=== PATIENT | female | born 1990 | race Caucasian/White ===

== ENCOUNTER 2020-03-25 21:23 | Outpatient (CLI) | payer OTHER, SELFPAY ==
[2019-08-16 10:47] VITALS: BMI 28.7
[2020-03-25 22:33] VITALS: BMI 35.6
[2020-03-26 00:34] LABS: Color, Urine Yellow (Yellow); Glucose, Dipstick Normal (Normal); Ketone-Dipstick Negative (Negative); Leukocyte Esterase-Dipstick Negative /ul (Negative); Nitrite-Dipstick Negative (Negative); Occult Blood-Urine Negative /ul (Negative); Protein-Dipstick Negative (Negative); Specific Gravity, Urine 1.015 (1.002-1.030); Urine Bilirubin Dipstick Negative (Negative); Urine Clarity Clear (Clear); Urine Urobilinogen Normal (Normal)
--- NOTE | 2020-03-26 09:42 | OB.TRI.HP_ITS ---
- Problem List (1) 35 weeks gestation of Status: Acute (2) History of delivery Status: Acute (3) Pelvic pressure in , antepartum Status: Acute History of Present Illness Date of Service: 03/25/20 Reason For Visit: R/O Date of Service: 03/25/20 Final ANNABELLA: 04/29/20 Gestational age: 35 Weeks and 1 Days History of Present Illness: at 35.0 weeks gestation that presents to triage for increasing pelvic pressure and contractions. Denies loss of fluid or vaginal bleeding. Positive movement. No dysuria, urgency or hematuria. Allergies No Known Allergies Allergy (Verified 03/25/20 23:11) Laboratory Studies: Laboratory Tests 03/25/20 Range/Units 23:25 Urine Color Yellow (Yellow) Urine Clarity Clear (Clear) Urine pH 7.0 (5.0 - 8.0) Ur Specific [place] 1.015 (1.002-1.030) Urine Protein Negative (Negative) mg/dl Urine Glucose (UA) Normal (Normal) mg/dl Urine Ketones Negative (Negative) mg/dl Urine Occult Blood Negative (Negative) /ul Urine Nitrite Negative (Negative) Urine Bilirubin Negative (Negative) mg/dL Urine Urobilinogen Normal (Normal) mg/dl Ur Leukocyte Esterase Negative (Negative) /ul Review of Systems Constitutional: Denies: Fever, Weakness Eyes: Denies: Blurred vision Cardiovascular: Denies: Chest Pain, Palpitations Respiratory: Denies: Cough, Shortness of Breath Genitourinary: Reports: Frequency. Denies: Dysuria, Hematuria, Retention, Urgency Physical Exam General: Alert Cardiovascular: Regular rate Lungs: Normal air movement Abdomen: Soft, Non Tender, Gravid Neurological: Cranial nerves II-XII grossly intact Cervix Dilation (cm): 1 Station: -2 Effacement (%): 70 NST - FHR Rate Baby A Baseline: 140 Variability:: Moderate Accelerations:: 15 x 15 Decelerations:: None NST Reactive:: Yes FHR Category:: Category I Uterine Activity:: TOCO reading 1-4 minutes, palpate mild and relaxed in between Impression/Plan 29 year old at 35.0 weeks gestation here for pelvic pressure, contractions Hx of delivery at 36 weeks gestation UA normal Category 1 tracing- Patient monitored for extended time (4 hours). CE x3 and remained unchanged at /-2 Discharge home and follow up in office this week. Dr. Smith present and agrees with plan of care
== END 2020-03-26 01:35 | disposition home health service (06) ==
LOC: WPOUT 21:45 → OBT 21:45
PROVIDERS: Visit Provider Advanced Practice Midwife
DX: O62.9 Abnormality of forces of labor, unspecified (principal); Z3A.35 35 weeks gestation of pregnancy
CPT/HCPCS: 59025; 59050; 81002; 99218; G0378

== ENCOUNTER 2020-03-26 20:35 | Outpatient (CLI) | payer OTHER, SELFPAY ==
[2020-03-25 22:33] VITALS: BMI 35.6
[2020-03-26 20:47] VITALS: BP 121/76; PULSE 85; TEMP 36.1; O2SAT 98
[2020-03-26 21:35] VITALS: BMI 35.3
[2020-03-26 22:18] VITALS: BP 122/69; PULSE 77
[2020-03-26] MEDS: Lactated Ringers 1,000 ML 50 ML IV (22:40)
[2020-03-27 01:22] VITALS: BP 106/53; PULSE 68
[2020-03-27 01:23] VITALS: TEMP 36.7
[2020-03-27 01:25] VITALS: PULSE 75; O2SAT 97
[2020-03-27 05:10] VITALS: BP 117/69; PULSE 75; TEMP 37
--- NOTE | 2020-03-30 22:11 | OB.TRI.NOTE ---
- Problem List (1) 35 weeks gestation of Status: Acute (2) History of delivery Status: Acute (3) Pelvic pressure in , antepartum Status: Acute History of Present Illness Date of Service: 03/26/20 Was patient seen by the physician?: No Reason For Visit: RULE OUT LABOR Date of Service: 03/26/20 Gestational age: 35.2 History of Present Illness: Patient is a at 35.2 weeks gestation that presents for pelvic pain and contractions. Patient just discharged from triage yesterday for same complaint. Has history of delivery at 36 weeks gestation. Positive movement. Denies loss of fluid or vaginal bleeding. Allergies No Known Allergies Allergy (Verified 03/26/20 21:36) Review of Systems Constitutional: Denies: Chills, Fever, Weight Change HEENT: Denies: Head Aches, Sinus Congestion, Sinus Drainage Cardiovascular: Denies: Chest Pain, Light Headedness, Palpitations Respiratory: Denies: Shortness of Breath Gastrointestinal: Reports: Abdominal Pain Genitourinary: Denies: Dysuria Gynecological: Denies: Vaginal bleeding Physical Exam Vitals: Vital Signs Temp Pulse BP Pulse Ox 98.6 F 75 117/69 97 03/27/20 05:10 03/27/20 05:10 03/27/20 05:10 03/27/20 01:25 General: Alert Cardiovascular: Regular rate Lungs: Normal air movement Abdomen: Soft, Non Tender, Gravid Neurological: Cranial nerves II-XII grossly intact Estimated gestational size: Appropriate for gestational size Presentation: Cephalic Cervix Dilation (cm): 1 Station: -3 Effacement (%): 70 NST - FHR Rate Baby A Baseline: 140 Variability:: Moderate Accelerations:: 15 x 15 Decelerations:: None NST Reactive:: Yes FHR Category:: Category I Uterine Activity:: TOCO reading 2-5 min Impression/Plan at 35.2 weeks gestation presents for pelvic pressure and contractions. CE - unchanged from 24 hours ago /-3 TOCO reading contractions every 2-6 minutes, palpate mild and relaxed in between Plan: Keep as observation status on unit. Start IV fluids- LR at 50cc/hr Pain medication as indicated Continuous monitoring Recheck cervix in morning- If unchanged discharge home and continue follow up in office this week Dr. Smith agrees with plan of care.
== END 2020-03-27 07:25 | disposition home or self-care (01) ==
LOC: OBT 21:06 → WP 03-27 13:27
PROVIDERS: Referring Provider Advanced Practice Midwife; Visit Provider Advanced Practice Midwife
DX: O26.893 Other specified pregnancy related conditions, third trimester (principal); R10.2 Pelvic and perineal pain; Z3A.35 35 weeks gestation of pregnancy
CPT/HCPCS: 59025; 59050; 99218; J7120; G0378

== ENCOUNTER 2020-04-11 19:36 | Inpatient (IN) | payer OTHER, SELFPAY ==
[2014-10-02 02:56] VITALS: BMI 27.1
[2020-04-11 19:51] VITALS: BP 123/73; PULSE 92; TEMP 36.8; O2SAT 98
[2020-04-11 20:13] VITALS: BMI 36.2
[2020-04-11] MEDS: Lactated Ringers 1,000 ML 200 ML IV (20:21)
[2020-04-11 20:42] VITALS: TEMP 36.8
[2020-04-11 21:04] LABS: Absolute Lymphocyte Count 1.98 X10^3/uL (0.83-4.51); Absolute Neutrophil Count 10.8 X10^3/uL (2.0-7.7); Basophil# 0.03 X10^3/uL; Basophil% 0.2 % (0-1); Eosinophils% 0.7 % (0-5); Hematocrit 37.7 % (37-47); Lymphocyte # 1.98 X10^3/ul (4.0); Lymphocyte % 14.5 % (19-41); Mean Corp Hgb Conc 31.8 g/dL (32-36); Mean Corpuscular Hgb 26.8 pg (27.0-32.0); Mean Corpuscular Volume 84.3 fL (81-99); Monocyte# 0.61 X10^3/uL; Monocyte% 4.5 % (0-10); NRBC Flagged by Analyzer 0 % (0-5); Neutrophil % 79.1 % (47-70); Platelet Count 277 K/mm3 (150-450); RBC Distribution Width CV 14.6 % (11.6-14.6); RBC Distribution Width SD 43.9 fl (35.1-43.9); Red Blood Count 4.47 M/mm3 (4.2-5.4); White Blood Count 13.7 K/mm3 (4.4-11.0)
--- NOTE | 2020-04-11 21:14 | HP.PCM_ITS ---
History Date of Admission: 04/11/20 Final ANNABELLA: 04/29/20 Gestational age: 37 Weeks and 3 Days History of this : This is a 29 year-old, @ 37.3 weeks, c/o contractions- VE: 5/60/-3 with contractions every 2-4 min. Denies VB or LOF. Allergies No Known Allergies Allergy (Verified 04/11/20 19:56) Home Medications: Home Medications fluoxetine 10 mg capsule 20 mg PO DAILY 08/16/19 lactobacillus combination no.8 3 billion cell capsule 3,000 mmu cells PO DAILY 08/16/19 prenat.vits,marti,hlc-qbxr-lhwor 1 tab PO DAILY 08/16/19 Acyclovir 400 mg PO TID 04/11/20 Smoking Status: Never smoker Alcohol: None Number of Fetus(es): 1 NST - FHR Rate Baby A Baseline: 140 Variability:: Moderate Accelerations:: 15 x 15 Decelerations:: None NST Reactive:: Yes FHR Category:: Category I Uterine Activity:: q2-4 History Past Pregnancies: Past Pregnancies Delivery Date Name GA/ Weeks Outcome Route Wt Infant Sex Labor Length Anesthesia Delivery Location Provider FOB Labs: +GBS Expected Infant Delivery Method: Spontaneous Vaginal Review of Systems Eyes: Denies: Vision Change Cardiovascular: Denies: Chest Pain Respiratory: Denies: Cough Physical Exam Vitals: Vital Signs Temp Pulse BP Pulse Ox 98.2 F 92 123/73 H 98 04/11/20 20:42 04/11/20 19:51 04/11/20 19:51 04/11/20 19:51 General: Alert, Oriented x3 Abdomen: Soft, Non Tender, - - gravid Neurological: Cranial nerves II-XII grossly intact 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
[2020-04-11 21:39] VITALS: BP 110/62; PULSE 79; O2SAT 97
[2020-04-11 21:41] VITALS: TEMP 37.3
[2020-04-11 22:38] VITALS: BP 124/74; PULSE 83; PULSE 87; TEMP 36.6; TEMP 36.7; O2SAT 97
[2020-04-11 23:42] VITALS: BP 112/62; PULSE 74; PULSE 77; TEMP 36.7; TEMP 36.8; O2SAT 96
[2020-04-12] VITALS (85 sets, daily range): BP systolic 92–135; BP diastolic 51–76; PULSE 65–116; RESP 14–17; TEMP 35.9–37.3; O2SAT 94–100
--- NOTE | 2020-04-12 01:17 | PCM.PN.BLA ---
Progress Note pt seen at bedside, VE performed- 7-8/75/-3 bulging membranes but head is ballotable and not able to AROM at this time. will continue with position changes and AROM when head engaged. STROKE Vital Signs/Narrative: Vital Signs Temp Pulse BP Pulse Ox 04/12/20 01:00 97.7 F L 77 124/69 H 04/11/20 23:42 98.3 F 77 112/62 96 04/11/20 22:38 98.0 F 87 124/74 H 97 04/11/20 21:41 99.1 F 04/11/20 21:39 79 110/62 97
[2020-04-12] MEDS: Lactated Ringers 1,000 ML 200 ML IV (01:28)
[2020-04-12] MEDS: Ondansetron 4 MG/2 ML Vial IV (03:51)
--- NOTE | 2020-04-12 05:31 | PCM.PN.BLA ---
Progress Note VE Performed- AL but reducible- IFM placed due to decelerations with pushing and difficulty maintaining FHR with position changes. Anticipate STROKE Vital Signs/Narrative: Vital Signs Temp Pulse BP Pulse Ox 04/12/20 04:31 97.9 F 71 126/64 H 100 04/12/20 03:51 72 94 04/12/20 03:50 76 94 04/12/20 03:46 73 98 04/12/20 03:41 76 98 04/12/20 03:36 74 100 04/12/20 03:31 69 99 04/12/20 03:26 65 98 04/12/20 03:21 71 117/59 L 98 04/12/20 02:49 98.2 F 04/12/20 02:48 98.3 F 77 121/72 H 97
--- NOTE | 2020-04-12 05:42 | PCM.PN.BLA ---
Progress Note pt seen at bedside, Exhausted - AL feels like it reduced and now complete. Pt has good maternal pushing efforts but reports does not have anymore energy to push. Fetus feels OP position. I discussed with patient that i do feel this baby is larger than her previous- I am estimating 8.5lb and with OP position it could require longer pushing effort than expected. we reviewed Epidural placement - pt agrees would like epidural at this time. I did also review that if she continues to have no decent with good maternal pushing efforts there is chance of C/S. STROKE Vital Signs/Narrative: Vital Signs Temp Pulse BP Pulse Ox 04/12/20 05:33 96.6 F L 81 123/70 H 98 04/12/20 04:31 97.9 F 71 126/64 H 100 04/12/20 03:51 72 94 04/12/20 03:50 76 94 04/12/20 03:46 73 98 04/12/20 03:41 76 98 04/12/20 03:36 74 100 04/12/20 03:31 69 99 04/12/20 03:26 65 98 04/12/20 03:21 71 117/59 L 98 04/12/20 02:49 98.2 F 04/12/20 02:48 98.3 F 77 121/72 H 97
[2020-04-12] MEDS: Lactated Ringers 500 ML 999 ML IV ×2 (05:46→06:24)
[2020-04-12] MEDS: fentaNYL-bupivacaine (epidural) 100 ML BAG EPIDURAL (06:19)
[2020-04-12] MEDS: Cefazolin 2 GM in 0.9% Normal Saline 100 ML IV (06:38)
--- NOTE | 2020-04-12 06:40 | FALS_PTH ---
PATIENT: SHIRLENE CHANCE LOC: [facility] U#:[id number] AGE/SX: 29/F ROOM: WP015 RE04/11/[address]: Dr. Malena Shaw, MDDOB: 1990 BED: 1 DIS: 04/14/2020 SPEC #: [id number] RECD: 04/12/20 12:59 STATUS: MANDIE ANNITA #: [id number] WENDY: 04/12/20 06:[address]: Malena Shaw DEPT: SURGICAL PATHOLOGY RECD BY: Mary Pepper ENTERED: 04/13/20 09:27 SP TYPE: FALL TUBES OTHR DR: Veronique Primary Care Phys Tissues: Fallopian tube Procedures: Surgery Specimen Level II HEADER OPERATION: Tubal ligation PRE-OP DIAGNOSIS: Sterilization TISSUE SUBMITTED: Fallopian tubes MICROSCOPIC DIAGNOSIS Bilateral fallopian tubes, tubal ligation: Completely transected segments of bilateral fallopian tubes, no pathologic diagnosis. MAYRA:lucie 04/14/20 MICROSCOPIC DESCRIPTION Slides are reviewed. GROSS DESCRIPTION Received is one container labeled with the patient's name and not further designated. The specimen consists of two tubular pieces of farrell soft tissue measuring 1 cm in length and 0.5 cm in diameter and 1.3 cm in length and 0.5 cm in diameter. The entire specimen is submitted in two cassettes with each cassette containing one piece. The specimen will be sectioned at the time of embedding. / MAYRA:lucie 04/13/20 TC:4 CPT: 16020 x2
--- NOTE | 2020-04-12 07:10 | RAD_ITS ---
STUDY: X-RAY - ABDOMEN/PELVIS REASON FOR EXAM: Female, 29 years old. C section, surgical sponge count TECHNIQUE: Single AP view of the abdomen / pelvis. COMPARISON: None. FINDINGS: There is a moderate amount of colonic fecal material. The visualized liver, spleen and kidneys are grossly normal in size and morphology. Normal soft tissue structures. Normal visualized osseous structures. RAD/Abdomen Single View IMPRESSION: No radiopaque foreign body is seen. Electronically Signed: Gomez Weaver, at 7:55 EDT , Service support ,
--- NOTE | 2020-04-12 07:46 | PCM.OPRPT ---
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 Description of Procedure: After informed consent was obtained the patient was taken the operating room FHR was 40-90s- She was prepped with betadine and draped in the normal sterile fashion. Anesthesia was found to be adequate. At this time a Pfannenstiel skin incision was made with a knife was carried down to the underlying layer of the fascia Rectus muscles were then in the midline bluntly and peritoneum was entered bluntly. Gentle opposing traction was placed. Scalpel was used to make a uterine incision in a low transverse fashion. The uterus was then entered bluntly gentle opposing traction was placed to extend this incision. amniotic fluid clear. 's head - in OP position- was brought to the uterine incision was delivered atraumatically. Cord was clamped and cut was handed to the waiting nursery team. The Placenta was removed from the uterus. The uterus was then removed from the abdominal cavity. The uterus was cleared of all clots and debris using a lap. At this time the uterine incision was reapproximated using #1 Vicryl in a running locked fashion, followed by a second imbricating layer. Small extension down left side- repaired in running locked fashion with #1 vicryl. Andra placed over incision- Hemostasis was appreciated. Posterior cul-de-sac was then cleared of all clots and debris. Patient requested tubal ligation at time of . Both tubes were identified and they were grasped with Tibbie in an avascular plane. Plain gut suture was used to create a knuckle it was doubly secured. And a portion of the tube was removed and the pedicles were coagulated with the Bovie. Excellent hemostasis was appreciated. Uterus was placed back in the abdominal cavity . Gutters were cleared of all clots and debris. Uterine incision was reevaluated and noted to be of excellent hemostasis. At this time the peritoneum was grasped with Kellys reapproximated using #2 Vicryl suture in a running fashion. Fascia was then reapproximated using #1 Vicryl in a running fashion. Subcu layer was reapproximated with #2 0 plain gut suture in an interrupted fashion. Subcu layer was closed using 4-0 Monocryl in a subcu fashion. Dry sterile dressing was applied. Count was not performed prior to the start of the surgery x-ray demonstrated no retained instruments or laps. Anticipated normal postoperative course. Patient did receive Ancef 2 g as well as azithromycin 500 mg. She will receive 1 more dose of Ancef. She will receive a CBC at noon and repeat tomorrow. Amniotic Fluid Description: Clear Placenta Disposition: [facility] Drain: Ordaz to straight drain Fluids Replaced: 1850 Cord Entanglement: None Nuchal Cord Compression: Without compression Cord Vessel Description: 3 Vessels Esitmated Blood Loss (ml): 700 Gender: Female (1 minute): 5 (5 minute): 7 - 10min 9 Delayed cord clamping: No Antibiotic Given: Ancef 2 grams IV x1, Zithromax 500 mg/5 mL X1 Pt instructed on risks of surgery: Bleeding, Anesthesia Risks, Infection, Permanency, Failure Rate of 1 to 2%, Injury to surrounding structure(s) including bowel and bladder, Availability of other non-permanent control options - Admit VTE Documentation VTE Present on Admission: Yes VTE Mechan Device Prophylaxis: SCD's VTE Pharm Prophylaxis ordered?: Yes
[2020-04-12] MEDS: Oxytocin 30 units/NS 500 ml 30 UNITS/500 ML IV.SOLN 167 UNITS IV (08:05)
[2020-04-12 08:32] LABS: Hematocrit 34.4 % (37-47); Hemoglobin 10.6 g/dL (12.0-15.0); Mean Corp Hgb Conc 30.8 g/dL (32-36); Mean Corpuscular Hgb 26.4 pg (27.0-32.0); Mean Corpuscular Volume 85.6 fL (81-99); Mean Platelet Vol. 10.6 fl (6.2-12.0); Platelet Count 246 K/mm3 (150-450); RBC Distribution Width SD 45.2 fl (35.1-43.9); Red Blood Count 4.02 M/mm3 (4.2-5.4); White Blood Count 23.2 K/mm3 (4.4-11.0)
[2020-04-12] MEDS: Senna/Docusate Sodium 1 Tablet PO (10:35)
[2020-04-12] MEDS: FLUoxetine 20 MG Capsule PO (10:35)
[2020-04-12] MEDS: Acetaminophen 500 MG Tablet 1000 MG PO ×3 (11:16→23:47)
[2020-04-12] MEDS: Ibuprofen 600 MG Tablet PO ×3 (11:16→23:47)
[2020-04-12] MEDS: Lactated Ringers 1,000 ML 100 ML IV (11:18)
[2020-04-12 12:23] LABS: Hematocrit 32.3 % (37-47); Hemoglobin 10.5 g/dL (12.0-15.0); Mean Corp Hgb Conc 32.5 g/dL (32-36); Mean Corpuscular Hgb 27.5 pg (27.0-32.0); Mean Corpuscular Volume 84.6 fL (81-99); Mean Platelet Vol. 10.5 fl (6.2-12.0); Platelet Count 231 K/mm3 (150-450); Red Blood Count 3.82 M/mm3 (4.2-5.4); White Blood Count 20.4 K/mm3 (4.4-11.0)
[2020-04-12 12:41] LABS: Scan Indicated on CBC? Y/N NO
[2020-04-12 12:59] LABS: Pathology Specimen OB SEE PATHOLOGY REPORT
[2020-04-12] MEDS: Acyclovir 200 MG Capsule 400 MG PO ×2 (14:02→22:29)
[2020-04-12] MEDS: Cefazolin 1 GM/50 ML BAG IV ×2 (14:02→22:35)
[2020-04-12] MEDS: Enoxaparin 40 MG/0.4 ML Syringe SC (18:45)
--- NOTE | 2020-04-12 18:47 | NURSING ---
1200 epidural cath removed blue tip intact
[2020-04-12] MEDS: 0.9% Saline Lock 10 ML Syringe IV (22:30)
[2020-04-13 04:44] VITALS: BP 110/60; PULSE 74; RESP 16; TEMP 36.8; TEMP 36.9
[2020-04-13 05:03] LABS: Hematocrit 30.8 % (37-47); Hemoglobin 9.6 g/dL (12.0-15.0); Mean Corp Hgb Conc 31.2 g/dL (32-36); Mean Corpuscular Hgb 27.1 pg (27.0-32.0); Mean Platelet Vol. 10.5 fl (6.2-12.0); Platelet Count 188 K/mm3 (150-450); RBC Distribution Width CV 14.9 % (11.6-14.6); RBC Distribution Width SD 46.8 fl (35.1-43.9); Red Blood Count 3.54 M/mm3 (4.2-5.4); White Blood Count 12.3 K/mm3 (4.4-11.0)
[2020-04-13] MEDS: Acetaminophen 500 MG Tablet 1000 MG PO ×3 (05:59→18:34)
[2020-04-13] MEDS: Acyclovir 200 MG Capsule 400 MG PO ×3 (05:59→21:21)
[2020-04-13] MEDS: Ibuprofen 600 MG Tablet PO ×3 (06:00→18:34)
[2020-04-13 07:45] VITALS: BP 113/64; PULSE 70; RESP 16; TEMP 36.6; TEMP 37.4
--- NOTE | 2020-04-13 08:25 | PN.OBGYN_ITS ---
Subjective: pt seen at bedside, doing well. pt reports good pain control. lochia mild. Breast feeding. Tolerating regular diet. voiding w/o difficulty. no flatus yet. denies N/V. - Physical Exam Vitals/I&O's: Vital Signs Temp Pulse Resp BP Pulse Ox 99.3 F H 70 16 113/64 99 04/13/20 07:45 04/13/20 07:45 04/13/20 07:45 04/13/20 07:45 04/12/20 17:44 Oxygen Delivery Method Room Air Weight: 89.811 kg Body Mass Index (BMI) 36.2 Intake and Output for Last 24 Hours 04/11/20 04/12/20 04/13/20 23:59 23:59 23:59 Intake Total 0 / 0 5023.33 / 5023.33 Output Total 1560 / 1560 Balance 0 / 0 3463.33 / 3463.33 General: Alert, Oriented x3 Abdomen: Soft, Non Tender, Non-Distended, - - dressing incision dry and intact. Fundus firm Extremities: No Calf Tenderness Laboratory Results 04/12/20 08:25: WBC 23.2 H, RBC 4.02 L, Hgb 10.6 L, Hct 34.4 L, MCV 85.6, MCH 26.4 L, MCHC 30.8 L, RDW Std Deviation 45.2 H, RDW Coeff of Reina 15.0 H, Plt Count 246, MPV 10.6 04/12/20 12:05: WBC 20.4 H, RBC 3.82 L, Hgb 10.5 L, Hct 32.3 L, MCV 84.6, MCH 27.5, MCHC 32.5 D, RDW Std Deviation 45.0 H, RDW Coeff of Reina 15.0 H, Plt Count 231, MPV 10.5 04/13/20 04:55: WBC 12.3 H, RBC 3.54 L, Hgb 9.6 L, Hct 30.8 L, MCV 87.0, MCH 27.1, MCHC 31.2 L, RDW Std Deviation 46.8 H, RDW Coeff of Reina 14.9 H, Plt Count 188, MPV 10.5 Current Medications Acetaminophen (Tylenol) 1,000 mg PO Q6 [facility] Last Admin: 04/13/20 05:59 Dose: 1,000 mg Documented by: Acyclovir (Zovirax) 400 mg PO TID [facility] Last Admin: 04/13/20 05:59 Dose: 400 mg Documented by: Bisacodyl (Dulcolax) 10 mg RECTAL UD PRN PRN Reason: If no BM Enoxaparin Sodium (Lovenox) 40 mg SC DAILY@1900 [facility] Last Admin: 04/12/20 18:45 Dose: 40 mg Documented by: Fluoxetine HCl (Prozac) 20 mg PO DAILY [facility] Last Admin: 04/12/20 10:35 Dose: 20 mg Documented by: Hydrocortisone (Hytone) 1 applic TOPICAL TID PRN PRN; Protocol PRN Reason: Discomfort Naloxone HCl 4 mg/ Dextrose 504 mls @ 0 mls/hr IV .Q0M PRN; Protocol PRN Reason: To maintain Resp. rate >10 Ibuprofen (Motrin) 600 mg PO Q6 [facility] Last Admin: 04/13/20 06:00 Dose: 600 mg Documented by: Methylergonovine Maleate (Methergine) 0.2 mg IM X1 PRN PRN Reason: Uterine Atony Naloxone HCl (Narcan) 0.02 mg IV Q1M PRN PRN Reason: RR <10 and pt unresponsive Ondansetron HCl (Zofran) 4 mg IV Q4H PRN PRN PRN Reason: Nausea Oxycodone HCl (Oxyir) 5 - 10 mg PO Q4H PRN PRN PRN Reason: Pain Score 4-10/10 Prochlorperazine Edisylate (Compazine Iv) 10 mg IV Q6H PRN PRN PRN Reason: NAUSEA Senna/Docusate Sodium (Senokot-S, Chanelle-Colace) 0 tablet PO DAILY [facility] Last Admin: 04/12/20 10:35 Dose: 1 tablet Documented by: Simethicone (Mylicon) 80 mg PO PCHS PRN PRN Reason: Indigestion/stomach pain Sodium Chloride () 5 - 15 ml IV UD PRN PRN Reason: SALINE FLUSH Last Admin: 04/12/20 22:30 Dose: 10 ml Documented by: Medical Necessity - Tobacco Use Smoking Status: Never smoker Assessment/Plan All Active Problems (Last Reviewed 08/16/19 @ 10:49 by Sabrina N Domenic) 35 weeks gestation of (Acute) History of delivery (Acute) Pelvic pressure in , antepartum (Acute) POD#1, doing well routine care pain mgmt ambulation
[2020-04-13] MEDS: Senna/Docusate Sodium 1 Tablet PO (09:53)
[2020-04-13] MEDS: FLUoxetine 20 MG Capsule PO (09:53)
[2020-04-13 13:58] VITALS: BP 112/65; PULSE 75; TEMP 37.1
[2020-04-13 13:59] VITALS: BP 112/65; PULSE 75; RESP 16; TEMP 37.1
[2020-04-13] MEDS: Enoxaparin 40 MG/0.4 ML Syringe SC (18:35)
[2020-04-13 20:56] VITALS: BP 115/59; PULSE 76; TEMP 38; O2SAT 98
[2020-04-13 21:15] VITALS: BP 115/59; PULSE 80; RESP 16; TEMP 37; O2SAT 98
[2020-04-14] MEDS: Acetaminophen 500 MG Tablet 1000 MG PO ×2 (00:39→06:46)
[2020-04-14] MEDS: Ibuprofen 600 MG Tablet PO ×2 (00:39→06:46)
[2020-04-14 01:15] VITALS: BP 118/57; PULSE 87; RESP 17; TEMP 36.9; O2SAT 96
[2020-04-14 01:17] VITALS: BP 118/57; PULSE 71
[2020-04-14] MEDS: Acyclovir 200 MG Capsule 400 MG PO (06:47)
[2020-04-14 08:11] VITALS: BP 119/74; PULSE 77; TEMP 36.9
[2020-04-14 08:30] VITALS: BP 119/74; PULSE 86; RESP 18; TEMP 36.9; O2SAT 98
[2020-04-14 08:47] VITALS: BP 119/74; PULSE 86; RESP 18; TEMP 36.9; O2SAT 98
--- NOTE | 2020-04-14 08:50 | DCINST_ITS ---
Discharge Diet: No Restrictions Discharge Activity: May not drive while taking narcotic pain medications., May Shower May resume sexual activity in: 6 weeks Weight Bearing Status: Weight bearing as tolerated, Full weight bearing, Partial weight bearing, Toe touch weight bearing, No weight bearing Call your doctor if your incision/area has: Continuous Slow Oozing, Sudden Increased Bleeding, Increased Pain/ Swelling, Increased Redness, Foul Smelling Discharge, Swelling at the incision site Additional Instructions: If you experience any of the following, contact your healthcare provider. * Bleeding that soaks a pad every hour for 2 hours * Fever 100.4 or higher * Unrelieved incision or abdominal pain * Swelling, redness, discharge or bleeding from your incision or episiotomy site * Your incision begins to separate * Problems urinating (including inability to urinate or burning while urinating). * Visual changes * Severe headache * Flu-like symptoms * Pain or redness in one of both of your breasts * Pain, warmth, tenderness or swelling in your legs, especially the calf area * Frequent nausea and vomiting * Symptoms of depression or anxiety If you experience any of the following, call 911 or go to the nearest Emergency Room. * Chest pain * Problems breathing * Seizure activity * Partial or complete paralysis of a body part, slurred speech, weakness or drooping of the face, or a sudden inability to walk or hold your balance Allergies/Adverse Reactions: Allergies No Known Allergies Allergy (Verified 04/11/20 19:56) Medications to take at Discharge fluoxetine 10 mg capsule 20 mg PO DAILY 08/16/19 lactobacillus combination no.8 3 billion cell capsule 3,000 mmu cells PO DAILY 08/16/19 prenat.vits,marti,dac-ssas-ltbsa 1 tab PO DAILY 08/16/19 Acyclovir 400 mg PO TID 04/11/20 Acetaminophen [Tylenol] 1,000 mg PO Q6 tablet 04/14/20 Ibuprofen [Motrin] 600 mg PO Q6 tablet 04/14/20 Follow-Up: Call to make an appointment with your doctor for an incision check in 1-2 weeks. You will also need a 6 week post- follow up appointment. Test results from this visit will be discussed in further detail at your follow- up appointment, if applicable. Primary Care Physician: Care Physician,No Primary [Primary Care Provider] -
--- NOTE | 2020-04-14 08:50 | PCM.PN.OB ---
Subjective: No complaints - Physical Exam Vitals/I&O's: Vital Signs Temp Pulse Resp BP Pulse Ox 98.4 F 77 17 119/74 96 04/14/20 08:11 04/14/20 08:11 04/14/20 01:15 04/14/20 08:11 04/14/20 01:15 Oxygen Delivery Method Room Air Weight: 198 lb Body Mass Index (BMI) 36.2 Intake and Output for Last 24 Hours 04/12/20 04/13/20 04/14/20 23:59 23:59 23:59 Intake Total 5023.33 / 5023.33 Output Total 1560 / 1560 Balance 3463.33 / 3463.33 General: Alert, Oriented x3 Abdomen: Soft, Non Tender, Non-Distended - ff mid & below umb; incision - bandage c/d/i Extremities: No Calf Tenderness Current Medications Acetaminophen (Tylenol) 1,000 mg PO Q6 [facility] Last Admin: 04/14/20 06:46 Dose: 1,000 mg Documented by: Acyclovir (Zovirax) 400 mg PO TID [facility] Last Admin: 04/14/20 06:47 Dose: 400 mg Documented by: Bisacodyl (Dulcolax) 10 mg RECTAL UD PRN PRN Reason: If no BM Enoxaparin Sodium (Lovenox) 40 mg SC DAILY@1900 [facility] Last Admin: 04/13/20 18:35 Dose: 40 mg Documented by: Fluoxetine HCl (Prozac) 20 mg PO DAILY [facility] Last Admin: 04/13/20 09:53 Dose: 20 mg Documented by: Hydrocortisone (Hytone) 1 applic TOPICAL TID PRN PRN; Protocol PRN Reason: Discomfort Naloxone HCl 4 mg/ Dextrose 504 mls @ 0 mls/hr IV .Q0M PRN; Protocol PRN Reason: To maintain Resp. rate >10 Ibuprofen (Motrin) 600 mg PO Q6 [facility] Last Admin: 04/14/20 06:46 Dose: 600 mg Documented by: Methylergonovine Maleate (Methergine) 0.2 mg IM X1 PRN PRN Reason: Uterine Atony Naloxone HCl (Narcan) 0.02 mg IV Q1M PRN PRN Reason: RR <10 and pt unresponsive Ondansetron HCl (Zofran) 4 mg IV Q4H PRN PRN PRN Reason: Nausea Oxycodone HCl (Oxyir) 5 - 10 mg PO Q4H PRN PRN PRN Reason: Pain Score 4-10/10 Prochlorperazine Edisylate (Compazine Iv) 10 mg IV Q6H PRN PRN PRN Reason: NAUSEA Senna/Docusate Sodium (Senokot-S, Chanelle-Colace) 0 tablet PO DAILY [facility] Last Admin: 04/13/20 09:53 Dose: 1 tablet Documented by: Simethicone (Mylicon) 80 mg PO PCHS PRN PRN Reason: Indigestion/stomach pain Sodium Chloride () 5 - 15 ml IV UD PRN PRN Reason: SALINE FLUSH Last Admin: 04/12/20 22:30 Dose: 10 ml Documented by: Medical Necessity - Tobacco Use Smoking Status: Never smoker Assessment/Plan All Active Problems (Last Reviewed 08/16/19 @ 10:49 by Sabrina Sheth) 35 weeks gestation of (Acute) History of delivery (Acute) Pelvic pressure in , antepartum (Acute) POD#2 D/c home
[2020-04-14] MEDS: Senna/Docusate Sodium 1 Tablet PO (10:23)
[2020-04-14] MEDS: FLUoxetine 20 MG Capsule PO (10:23)
== END 2020-04-14 11:25 | disposition home or self-care (01) | DRG 783 ==
LOC: OBT 19:38 → WP 19:38
PROVIDERS: Admitting Provider Obstetrics & Gynecology; Referring Provider Obstetrics & Gynecology; Visit Provider Obstetrics & Gynecology
DX: O76 Abnormality in fetal heart rate and rhythm complicating labor and delivery (principal); O60.14X0 Preterm labor third trimester with preterm delivery third trimester, not applicable or unspecified; Z3A.37 37 weeks gestation of pregnancy; Z37.0 Single live birth; Z30.2 Encounter for sterilization
CPT/HCPCS: 59025; 59050; 74018; 85025; 85027; 86850; 86900; 86901; 87635; 88302; 99218; G2023; J7120; A4216; G0378; J2405; U0003

== ENCOUNTER → 2022-04-17 | Outpatient (CLI) | payer OTHER, SELFPAY ==
[2022-04-17 12:26] LABS: Absolute Lymphocyte Count 2.18 X10^3/uL (0.83-4.51); Absolute Neutrophil Count 3.6 X10^3/uL (2.0-7.7); Basophil# 0.03 X10^3/uL; Basophil% 0.5 % (0-1); Eosinophil# 0.08 X10^3/uL; Eosinophils% 1.3 % (0-5); Hematocrit 41.7 % (37-47); Hemoglobin 13.9 g/dL (12.0-15.0); Lymphocyte # 2.18 X10^3/ul (0.83-4.51); Lymphocyte % 34.4 % (19-41); Mean Corp Hgb Conc 33.3 g/dL (32-36); Mean Corpuscular Hgb 29.6 pg (27.0-32.0); Mean Corpuscular Volume 88.9 fL (81-99); Mean Platelet Vol. 10.8 fl (6.2-12.0); Monocyte% 6.3 % (0-10); NRBC Flagged by Analyzer 0 % (0-5); Neutrophil # 3.62 X10^3/uL (2.7-7.7); Neutrophil % 57.2 % (47-70); Platelet Count 317 K/mm3 (150-450); RBC Distribution Width CV 12.4 % (11.6-14.6); RBC Distribution Width SD 40.5 fl (35.1-43.9); Red Blood Count 4.69 M/mm3 (4.2-5.4); White Blood Count 6.3 K/mm3 (4.4-11.0)
[2022-04-17 12:56] LABS: AST(SGOT) 21 U/L (15-37); Alanine Aminotransfer ALT/SGPT 26 U/L (13-56); Albumin, Serum 3.5 g/dL (3.2-5.0); Alkaline Phosphatase 63 U/L (45-117); Anion Gap 4 (5-15); BUN 20 mg/dL (7-18); Calcium,Total 8.7 mg/dL (8.5-10.1); Chloride 106 mmol/L (98-107); EST Glomerular Filtration Rate 88 mL/min (>60); Est Glom Filt Rate - Afr Amer 107 mL/min (>60); Globulin 3.6 g/dL (2.2-4.2); Glucose 85 mg/dL (74-106); Protein, Total 7.1 g/dL (6.4-8.2); Sodium Level 139 mmol/L (136-145)
== END | disposition home or self-care (01) ==
LOC: BIMLAB 10:48
PROVIDERS: PCP Internal Medicine; Referring Provider Internal Medicine; Visit Provider Internal Medicine
DX: F32.A Depression, unspecified (principal)
CPT/HCPCS: 36415; 80053; 85025

== ENCOUNTER → 2023-04-21 | Outpatient (CLI) | payer OTHER, SELFPAY ==
[2023-04-21 12:23] LABS: Absolute Lymphocyte Count 1.78 X10^3/uL (0.83-4.51); Absolute Neutrophil Count 3.4 X10^3/uL (2.0-7.7); Basophil# 0.02 X10^3/uL; Basophil% 0.4 % (0-1); Eosinophil# 0.14 X10^3/uL; Eosinophils% 2.5 % (0-5); Lymphocyte # 1.78 X10^3/ul (0.83-4.51); Lymphocyte % 31.2 % (19-41); Mean Corp Hgb Conc 33.3 g/dL (32-36); Mean Corpuscular Hgb 29.2 pg (27.0-32.0); Mean Corpuscular Volume 87.5 fL (81-99); Mean Platelet Vol. 10.6 fl (6.2-12.0); Monocyte# 0.38 X10^3/uL; Monocyte% 6.7 % (0-10); NRBC Flagged by Analyzer 0 % (0-5); Neutrophil # 3.38 X10^3/uL (2.7-7.7); Platelet Count 306 K/mm3 (150-450); RBC Distribution Width CV 12.3 % (11.6-14.6); RBC Distribution Width SD 39.5 fl (35.1-43.9); White Blood Count 5.7 K/mm3 (4.4-11.0)
[2023-04-21 13:05] LABS: AST(SGOT) 35 U/L (15-37); Alanine Aminotransfer ALT/SGPT 38 U/L (13-56); Albumin, Serum 3.7 g/dL (3.2-5.0); Alkaline Phosphatase 69 U/L (45-117); Anion Gap 7 (5-15); BUN 13 mg/dL (7-18); BUN/Creat Ratio 14.1 RATIO (10-20); Calcium,Total 8.9 mg/dL (8.5-10.1); Chloride 107 mmol/L (98-107); Cholesterol 213 mg/dL (200); Creatinine, Serum 0.92 mg/dL (0.55-1.02); EST Glomerular Filtration Rate 74 mL/min (>60); Est Glom Filt Rate - Afr Amer 90 mL/min (>60); Globulin 3.8 g/dL (2.2-4.2); Glucose 88 mg/dL (74-106); High Density Lipoprotein 72 mg/dL; Protein, Total 7.5 g/dL (6.4-8.2); Sodium Level 138 mmol/L (136-145); Triglycerides 85 mg/dL; Very Low Density Lipoprotein 17 mg/dL (5-40)
== END | disposition home or self-care (01) ==
LOC: BIMLAB 09:16
PROVIDERS: PCP Internal Medicine; Referring Provider Internal Medicine; Visit Provider Internal Medicine
DX: Z00.00 Encounter for general adult medical examination without abnormal findings (principal); F32.A Depression, unspecified; Z13.6 Encounter for screening for cardiovascular disorders
CPT/HCPCS: 36415; 80053; 80061; 85025

== ENCOUNTER → 2023-05-30 | Outpatient (CLI) | payer OTHER, SELFPAY ==
--- NOTE | 2023-05-30 15:25 | RAD_ITS ---
STUDY: X-RAY RIGHT FOOT, FIRST TOE REASON FOR EXAM: Female, 32 years old. Right great toe pain. TECHNIQUE: 3 view(s) of the toe were obtained. COMPARISON: None. FINDINGS: Normal visualized metatarsus. Normal metatarsophalangeal (M.T.P) joint. Normal interphalangeal joints. Oblique minimally displaced fracture of the proximal and medial aspect of the proximal phalanx of the first toe with intra-articular extension. Soft tissue swelling at the fracture site. RAD/Toe(s) Min 2 Views IMPRESSION: Proximal phalangeal fracture with intra-articular extension as described.. Electronically Signed: Michi Manzano MD at 15:47 EDT ,
== END | disposition home or self-care (01) ==
LOC: MTRAD 15:23
PROVIDERS: PCP Internal Medicine; Referring Provider Physician Assistant Surgical; Visit Provider Physician Assistant Surgical
DX: M79.674 Pain in right toe(s) (principal)
CPT/HCPCS: 73660

== ENCOUNTER → 2023-12-12 | Outpatient (CLI) | payer OTHER, SELFPAY ==
--- OUTSIDE RECORDS SUMMARY | 2023-12-12 06:33 | XMS RPT_ITS | CCD ---
Author Name Unknown Address [address] 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 Name Role Phone Kirby López Unavailable Unavailable PCP, Unknown Unavailable Unavailable KIRBY LÓPEZ Unavailable Unavailable ALESSANDRO VILCHIS Unavailable Unavailable KIRBY LÓPEZ Unavailable Unavailable ALESSANDRO VILCHIS Unavailable Unavailable KIRBY LÓPEZ Unavailable Unavailable ALESSANDRO VILCHIS Unavailable Unavailable KIRBY LÓPEZ Unavailable Unavailable ALESSANDRO VILCHIS Unavailable Unavailable Nilton Gonzalez DO Primary Care Provider Nilton Gonzalez DO Primary Care Provider MALENA JOSEPH Attending Unavail able NILTON GONZALEZ Primary Care Unavailable Medications Completed/Discontinued Medications Medication Drug Class(es) Dates Sig (Normalized) Sig (Original) acyclovir 400 mg oral tablet (3 sources) Herpesvirus Nucleoside Analog DNA Polymerase Inhibitor, Herpes Simplex Virus Nucleoside Analog DNA Polymerase Inhibitor, Herpes Zoster Virus Nucleoside Analog DNA Polymerase Inhibitor Start: 03-28-2020 End: 08-22-2022 take 1 tablet by mouth three times daily acyclovir (ZOVIRAX) 400 mg tablet Take 1 tablet by mouth three times daily. 90 tablet 0 03/28/2020 08/22/2022 Discontinued Problems Active Problems Problem Classification Problem Date Documented Date Episodic/Chronic Anxiety disorders (2 sources) Anxiety; Translations: [Anxiety disorder, unspecified] Chronic Immunizations and screening for infectious disease (1 source) Needs influenza immunization; Translations: [Encounter for immunization] Episodic Residual codes; unclassified (2 sources) Gestation period, 23 weeks; Translations: [23 weeks gestation of ] Episodic Unclassified (1 source) Encounter for routine checking of intrauterine contraceptive device / Z30.431(ICD-10) Onset: 09-01-2018 Unclassified (1 source) Encounter for test, result negative / Z32.02(ICD-10) Onset: 07-30-2018 Unclassified (1 source) Encounter for insertion of intrauterine contraceptive device / Z30.430(ICD-10) Onset: 07-30-2018 Unclassified (1 source) Encounter for gynecological examination (general) (routine) without abnormal findings / Z01.419(ICD-10) Onset: 07-21-2018 Past or Other Problems Problem Classification Problem Date Documented Date Episodic/Chronic Genitourinary symptoms and ill-defined conditions (3 sources) Bacteriuria; Translations: [Bacteriuria] Onset: 09-27-2019 09-27-2019 Episodic Other complications of (3 sources) H/O: premature delivery; Translations: [Supervision of other high risk pregnancies, unspecified trimester] Onset: 09-09-2019 01-03-2020 Episodic Other infections; including parasitic (3 sources) History of sexually transmitted disease; Translations: [Personal history of other infectious and parasitic diseases] Onset: 09-09-2019 09-09-2019 Episodic Residual codes; unclassified (3 sources) H/O: previous delivery by vacuum extraction; Translations: [Personal history of other complications of , childbirth and the puerperium] Onset: 09-13-2019 09-13-2019 Episodic Screening and history of mental health and substance abuse codes (3 sources) H/O: anxiety state; Translations: [Personal history of other mental and behavioral disorders] Onset: 09-09-2019 09-09-2019 Episodic Results Test Name Value Interpretation Reference Range Facil ity Vital Signs Date Time Vital Sign Value Performing Clinician Vonnie barahona 08-22-2022 11:01-0500 Body height 157.5 cm Malena Smith MD Work Phone: [facility] 08-22-2022 11:01-0500 Body weight 74.84 kg Malena Smith MD Work Phone: [facility] 08-22-2022 11:01-0500 Diastolic blood pressure 60 mm[Hg] Malena Smith MD Work Phone: [facility] 08-22-2022 11:01-0500 Systolic blood pressure 110 mm[Hg] Malena Smith MD Work Phone: [facility] Encounters Encounter Date Encounter Type Care Provider Facility Start: 10-01-2023 End: 10-01-2023 ambulatory MALENA SMITH Facility:[facility] Start: 08-22-2022 End: 08-22-2022 Patient encounter procedure Malena Smith MD Work Phone: OB/Gynecology Procedures Date Procedure Procedure Detail Performing Clinician Start: 08-22-2022 INFLUENZA VACCINE QUADRIVALENT 6 MO - 64 YRS IM Malena Smith MD Work Phone: Plan of Treatment Date Care Activity Detail Author Start: 01-30-2030 Urine microalbumin profile DTA P,TDAP,TD (2 - Td or Tdap) [facility] Start: 05-23-2025 HPV TESTING HPV TESTING [facility] Start: 05-23-2025 PAP TESTING PAP TESTING [facility] Start: 06-06-2022 Influenza vaccination [facility] Start: 10-06-2021 DEPRESSION ASSESSMENT DEPRESSION ASS ESSMENT [facility] Start: 05-31-2021 COVID-19 VACCINE (3 - Booster for Moderna series) COVID-19 VACCINE (3 - Booster for Moderna series) [facility] Start: 02-23-2021 COVID-19 VACCINE (3 - Booster for Moderna series) COVID-19 VACCINE (3 - Booster for Moderna series) [facility] Start: 2001 Adult depression scr [facility] assessment DEPRESSION SCREENING [facility] Start: 1989 HEPATITIS B (1 of 3 - 3-dose series) HEPATITIS B (1 of 3 - 3-dose series) [facility] Immunizations Immunization Date Immunization Notes Care Provider Fa cility 08-22-2022 influenza, injectabl e, quadrivalent, contains preservative Malena Smith MD Work Phone: [facility] 01-31-2020 tetanus toxoid, redu janee diphtheria toxoid, and acellular pertussis vaccine, adsorbed Cheryl Mcguire HOT REPAIRMAN.CNM Work Phone: [facility] 09-21-2019 influenza, injectabl e, quadrivalent, contains preservative Cheryl Mcguire HOT REPAIRMAN.CNM Work Phone: [facility] Payers Date Payer Category Payer Unknown MMO MMO [employer] [id number] 2019-Present [phone] [address] [place] [address] PPO [id number] 2019 Unknown MMO MMO [employer] [id number] 2019-Present [phone] [address] [place] [address] PPO [id number] 2019 Unknown [id number] 1989 Unknown [id number] 1989 Unknown [id number] 1989 Unknown [id number] 1989 Unknown [id number] Unknown [id number] Unknown [id number] Social History Date Type Detail Facility Start: 08-22-2022 Tobacco smoking stat us NCIS Never smoked tobacco [facility] Start: 07-26-2021 End: 08-22-2022 Alcohol intake Ex-drinker (finding) [facility] Start: 09-09-2019 History SDOH Financial 5 [facility] Start: 09-09-2019 History SDOH Food Worry 1 [facility] Start: 09-09-2019 History SDOH Transpo rt Med 2 [facility] Start: 09-09-2019 Education 18 [facility] Start: 1989 [facility] Assigned At [facility] Start: 08-22-2022 Tobacco use and exposure Smoke less tobacco non-user [facility] Progress note 10-01-2023 Note Date & Type Note Facility 10-01-2023 Note HNO ID: [id number] Author: Malena Joseph MD Service: ? Author Type: Physician Type: Progress Notes Filed: 10/01/2023 11:19 AM Note Text: Machine Repairer offered: Patient declinesRalph Akhtar is a 32 year old who presents for an annual gynecologic exam without complaints. 4 children ages 3-10. Going to [place] next year for daughters dance team. Menses: cycles every 28 days and 5 days of flow. 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 History LMP: 09/17/2023, Having periods Age at Menarche: Age at First : Age at Menopause: Copping Machine Operator History Comments: Sexual Activity: Yes; Male Contraception: Condom, Tubal Ligation PAST MEDICAL HISTORY Diagnosis Date Anxiety anxiety Herpes simplex virus (HSV) infection Toe Fracture PAST SURGICAL HISTORY Procedure Laterality Date SECTION HX 04/12/2020 C/S low transverse TUBAL LIGATION Bilateral 04/12/2020 UNSPECIFIED ORAL SURGERY PROCEDURE, BY REPORT Beeler Teeth Extracted FAMILY HISTORY Problem Relation Age of Onset Hypertension Mother Hypertension Father Hypertension Brother Hypertension Brother Breast Cancer Maternal Grandmother Cancer Maternal Grandmother skin Hypertension Maternal Grandmother No Known Problems Maternal Grandfather Heart Paternal Grandmother No Known Problems Paternal Grandfather No Known Problems Brother born at 25 weeks SOCIAL HISTORY Social History Tobacco Use Smoking status: Never Smokeless tobacco: Never Vaping Use Vaping Use: Never used Substance Use Topics Alcohol use: Not Currently Comment: Seldom Drug use: No REVIEW OF SYSTEMS Abdomen: No abdominal pain, nausea, vomiting, diarrhea, or constipation. No bloating, early satiety, indigestion, or increased flatulence. Bladder: No dysuria, gross hematuria, urinary frequency, urinary urgency, or incontinence. Breast: No breast lumps, nipple d/c, overlying skin changes, redness or skin retraction. Allergies and current medication updated:Yes EXAM: BP 110/74 Ht 5' 1 (1.55m) Wt 172 lb 6.4 oz (78.2kg) LMP 09/17/2023 BMI 32.59 kg/(m2). GENERAL: pleasant, female in no apparent distress HEENT: Normocephalic, atraumatic, mucus membranes moist, and no lesions NECK: Supple, full range of motion, no adenopathy, and thyroid normal DERMATOLOGY: Normal, without lesions, non-icteric, and non-hirsute BREAST: soft, non-tender, symmetric, no dominant mass, normal nipple-areolar complex, no lymphadenopathy, and no nipple discharge ABDOMEN: soft, non-tender, and no masses PELVIC: external genitalia normal, normal Bartholin's glands, urethra, Sebring's glands, no vulvar lesions, no cervical lesions, good vaginal support, physiologic discharge present, normal appearing perineal body and perianal region BIMANUAL: uterus normal size, shape and consistency, no adnexal masses, and non-tender RECTOVAGINAL: deferred. NEURO: alert and oriented x3,exam grossly non-focal EXTREMITIES: normal ASSESSMENT/PLAN: 1) Health maintenance: Pap/HPV up to date. Mammogram starting age 40. Nutrition, exercise and routine health maintenance exams reviewed. Calcium/Vitamin D supplementation information provided. HPV vaccine: completed series 2) Contraception: tubal sterilization. Contraceptive options reviewed and information provided. 3) STD screening: Declined STD check. 4) Follow up one year or sooner as needed Malena Shaw MD [facility] History of Present illness Narrative 08-22-2022 Malena Smith MD - 08/22/2022 11:00 AM EST Note Date & Type Note Facility 08-22-2022 History of Presen t illness Narrative Machine Repairer offered: Patient declines. Giovana is a 31 year old who presents for an annual gynecologic exam without complaints. 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 Menses: cycles every 28 days and 5 days of flow. Contraception: tubal sterilization HPV vaccine: Yes Last Pap: 05/25/2020 normal HPV: 05/26/2020 negative History of abnormal pap: No Last mammogram: never Sexually active: Yes Patient concerns for STD exposure: No. 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 PAST MEDICAL HISTORY Diagnosis Date Anxiety anxiety Herpes simplex virus (HSV) infection Toe Fracture PAST SURGICAL HISTORY Procedure Laterality Date SECTION HX 04/12/2020 C/S low transverse TUBAL LIGATION Bilateral 04/12/2020 UNSPECIFIED ORAL SURGERY PROCEDURE, BY REPORT Beeler Teeth Extracted FAMILY HISTORY Problem Relation Age of Onset Hypertension Mother Hypertension Father Hypertension Brother Hypertension Brother Breast Cancer Maternal Grandmother Cancer Maternal Grandmother skin Hypertension Maternal Grandmother No Known Problems Maternal Grandfather Heart Paternal Grandmother No Known Problems Paternal Grandfather No Known Problems Brother born at 25 weeks SOCIAL HISTORY Social History Tobacco Use Smoking status: Never Smokeless tobacco: Never Vaping Use Vaping Use: Never used Substance Use Topics Alcohol use: Not Currently Comment: Seldom Drug use: No REVIEW OF SYSTEMS Abdomen: No abdominal pain, nausea, vomiting, diarrhea, or constipation. No bloating, early satiety, indigestion, or increased flatulence. Bladder: No dysuria, gross hematuria, urinary frequency, urinary urgency, or incontinence. Breast: No breast lumps, nipple d/c, overlying skin changes, redness or skin retraction. Allergies and current medication updated:Yes EXAM: BP 110/60 Ht 5' 2 (1.58m) Wt 165 lb (74.8kg) LMP 08/11/2022 BMI 30.17 kg/(m^2). GENERAL: pleasant, female in no apparent distress HEENT: Normocephalic, atraumatic, mucus membranes moist, and no lesions NECK: Supple, full range of motion, no adenopathy, and thyroid normal DERMATOLOGY: Normal, without lesions, non-icteric, and non-hirsute BREAST: soft, non-tender, symmetric, no dominant mass, normal nipple-areolar complex, no lymphadenopathy, and no nipple discharge ABDOMEN: soft, non-tender, and no masses PELVIC: external genitalia normal, normal Bartholin's glands, urethra, Sebring's glands, no vulvar lesions, no cervical lesions, good vaginal support, physiologic discharge present, normal appearing perineal body and perianal region BIMANUAL: uterus normal size, shape and consistency, no adnexal masses, and non-tender RECTOVAGINAL: deferred. NEURO: alert and oriented x3,exam grossly non-focal EXTREMITIES: normal ASSESSMENT/PLAN: 1) Health maintenance: Pap/HPV up to date. Mammogram starting age 40. Nutrition, exercise and routine health maintenance exams reviewed. Calcium/Vitamin D supplementation information provided. 2) Contraception: tubal sterilization. Contraceptive options reviewed and information provided. 3) STD screening: Declined STD check. 4) Follow up one year or sooner as needed 5) flu vaccine today Malena Shaw MD documented in this encounter [facility] Note 04-09-2022 Telephone Encounter - Yuliana Tony RN - 04/09/2022 11:46 AM EDTTelephone Encounter - Yuliana Tony RN - 04/09/2022 10:47 AM EDT Note Date & Type Note Facility 04-09-2022 Miscellaneous Notes Patient notified and voiced understanding. Patient has appointment with her PCP for next week. Yuliana Tony RN Refill request received from pharmacy for patients Prozac Rx. Patient last seen for annual exam on 07/26/21. Yuliana Tony RN documented in this encounter [facility] Note 02-05-2022 Telephone Encounter - Gloria Allen RN - 02/05/2022 12:27 PM EDTTelephone Encounter - Elyssa Brand RN - 02/05/2022 9:55 AM EDT Note Date & Type Note Facility 02-05-2022 Miscellaneous Notes Left message for patient to call office. Gloria Allen RN Patient last seen in office 07/26/2021. Medication ordered at that time. Please review documented in this encounter [facility] Evaluation note Note Date & Type Note Facility documented in this encounter [facility] Evaluation note Note Date & Type Note Facility documented in this encounter [facility] Evaluation note Note Date & Type Note Facility documented in this encounter [facility] Summary Purpose Family History No Family History Records FoundNo Family History Records FoundNo Family History Records Found Advance Directives No Advanced Directives Records FoundNo Advanced Directives Records FoundNo Advanced Directives Records Found Additional Source Comments INFORMATION SOURCE (unrecogn ized section and content) DATE CREATED AUTHOR AUTHOR'S ORGANIZ ATION 09/13/2018 [facility] DATE CREATED AUTHOR AUTHOR'S ORGANIZ ATION 10/03/2023 [facility] Source Comments (unrecognize d section and content) In the event this informatio n is protected by the Federal Confidentiality of Alcohol and Drug Abuse Patient Records regulations: The Federal rules restrict any use of the information to criminally investigate or prosecute any alcohol or drug abuse patient.[facility] the event this information is protected by the Federal Confidentiality of Alcohol and Drug Abuse Patient Records regulations: The Federal rules restrict any use of the information to criminally investigate or prosecute any alcohol or drug abuse patient.[facility] the event this information is protected by the Federal Confidentiality of Alcohol and Drug Abuse Patient Records regulations: The Federal rules restrict any use of the information to criminally investigate or prosecute any alcohol or drug abuse patient.[facility] Reason for Visit (unrecogniz ed section and content) Reason Onset Date Comments Yearly Exam Immunizations 08/22/2022 Flu vaccination Care Teams (unrecognized sec tion and content) 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 This clinical summary was aggregated from multiple sources. Caution should be exercised in using it in the provision of clinical care. This summary normalizes information from multiple sources, and as a consequence, information in this document may materially change the coding, format and clinical context of patient data. In addition, data may be omitted in some cases. CLINICAL DECISIONS SHOULD BE BASED ON THE PRIMARY CLINICAL RECORDS. [facility]. provides no warranty or guarantee of the accuracy or completeness of information in this document.
--- NOTE | 2023-12-12 06:48 | MRI_ITS ---
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 CONTRAST: IV CLARISCAN 15 CC COMPARISON: No relevant prior studies available. FINDINGS: BRAIN AND EXTRA-AXIAL SPACES: Unremarkable. No intra- or extra-axial hemorrhage. No evidence of acute infarct. No intracranial mass or mass effect. There is preservation of the zamora/white matter interface. Posterior fossa structures are unremarkable. Ventricles are appropriate for age. No hydrocephalus. Basal cisterns are patent. SELLA: Unremarkable. Normal sella turcica, pituitary gland, infundibular stalk, optic chiasm and hypothalamus. AUDITORY SYSTEM: Unremarkable. The internal auditory canals are patent. BONES/JOINTS: Unremarkable. No discrete lytic or blastic abnormalities. SINUSES: Unremarkable as visualized. Clear. MASTOID AIR CELLS: Unremarkable as visualized. Clear. ORBITS: Unremarkable as visualized. Both globes, extraocular muscles, optic nerves and retrobulbar fat appear unremarkable. VASCULATURE: Unremarkable as visualized. Normal flow voids in the major intracranial circulation. MRI/Brain W/WO Contrast IMPRESSION: Negative MRI brain without and with intravenous contrast. Electronically Signed: Papo Kelly MD at 17:02 EST ,
== END | disposition home or self-care (01) ==
PROVIDERS: PCP Internal Medicine; Referring Provider Ophthalmology; Visit Provider Ophthalmology
DX: H47.391 Other disorders of optic disc, right eye (principal)
CPT/HCPCS: 70553; A9575